=== PATIENT | female | born 1970 | race Caucasian/White ===

== ENCOUNTER 2020-06-26 19:41 | Emergency (ER) | payer OTHER, SELFPAY ==
[2020-06-26 19:50] VITALS: BP 135/100; PULSE 95; RESP 18; TEMP 36.8; O2SAT 100
--- NOTE | 2020-06-26 20:09 | ED.SKABFB ---
HPI - Skin/Abscess/Foreign Bdy General Chief complaint: Skin/Abscess/Foreign Body Stated complaint: Right thigh possible bite Source: patient Mode of arrival: ambulatory Limitations: no limitations History of Present Illness HPI narrative: Patient is a 50-year-old female who presents with a wound to right outer thigh. She reports possible bite starting approximately 10 days ago with increasing pain and broadening area over the past 3 to 4 days. She reports tenderness with palpation. She reports drainage. She reports multiple other areas on leg that all start the same . MD complaint: rash Related Data Allergies Allergy/AdvReac Type Severity Reaction Status Date / Time aspirin Allergy Unknown Hives Verified 06/26/20 19:58 Review of Systems Review of Systems: Narrative: CONSTITUTIONAL: Denies fever, chills, or sweats. EYES: Denies visual changes, redness, or discharge. ENT: Denies rhinorrhea, congestion, sore throat, or otalgia. CARDIOVASCULAR: Denies chest pain, palpitations, or edema. RESPIRATORY: Denies cough or dyspnea. GASTROINTESTINAL: Denies abdominal pain, nausea, vomiting, or diarrhea. GENITOURINARY: Denies dysuria or hematuria. SKIN: Multiple wounds to right leg MUSCULOSKELETAL: Denies back pain, joint pain, or myalgia. NEUROLOGIC: Denies headache, numbness, dizziness, or weakness. PSYCHIATRIC: Denies anxiety or depression. PMFSH Past Medical History Medical History Patient denies significant medical history Surgical History Surgical History History of partial hysterectomy Social History Social History (Updated 06/26/20 @ 20:13 by LEONEL Meeks) Smoking status: Current every day smoker Alcohol intake: never Substance use: unknown Exam Narrative: Exam Narrative: GENERAL: Well-appearing, well-nourished, and in no acute distress. HEAD: Normocephalic, atraumatic. EYES: No redness or drainage. Conjunctiva are normal. ENT: Mucous membranes pink and moist. CHEST: No respiratory distress. HEART: Regular rate and rhythm. EXTREMITIES: Normal range of motion. No edema. SKIN: 3 x 7 cm area cellulitis with excoriation in scabbing to right thigh, multiple areas of induration and scabbing on bilateral legs. NEURO: No focal deficits. Alert and oriented x3. Gait steady. PSYCH: Normal affect. No signs of depression or anxiety. Course Course Emergency Course: Patient has multiple areas of wounds to right leg. Patient appears wearing long sleeves, long pants and gloves, refusing to take off gloves. Patient is evasive about injuries and length of time. Wounds not consistent with patients explanation. Vital Signs Vital signs: Vital Signs Temperature 36.8 C 06/26/20 19:50 Pulse Rate 95 06/26/20 19:50 Respiratory Rate 18 06/26/20 19:50 Blood Pressure 135/100 H 06/26/20 19:50 Pulse Oximetry 100 06/26/20 19:50 Temperature 36.8 C 06/26/20 19:50 Pulse Rate 95 06/26/20 19:50 Respiratory Rate 18 06/26/20 19:50 Blood Pressure 135/100 H 06/26/20 19:50 Pulse Oximetry 100 06/26/20 19:50 MDM - Skin/Abscess/Foreign Bdy MDM Narrative Medical decision making narrative: Area of cellulitis to right thigh, multiple other wounds with different stages of healing.. Patient evasive when questioned about length of time of injuries and how they occurred. Patient refusing to answer many questions. Patient to be treated with antibiotics at this time. Given resources for PCP to follow-up with. Patient aware that if area of redness continues to grow that she needs to go to the emergency department for further evaluation and possible IV antibiotics. Patient agrees with plan of care. Patient is stable for discharge to home with outpatient follow-up Differential Diagnosis Differential diagnosis: Likely abscess of skin or subcutaneous tissue, cellulitis, insect bites and impetig
[2020-06-26 20:30] VITALS: BP 130/90
== END 2020-06-26 20:30 | disposition home or self-care (01) ==
PROVIDERS: Emergency Provider Nurse Practitioner
DX: L03.115 Cellulitis of right lower limb (principal); F17.200 Nicotine dependence, unspecified, uncomplicated
CPT/HCPCS: 99213; G0463